=== PATIENT | female | born 1990 | race Caucasian/White ===

== ENCOUNTER 2019-03-07 06:00 | Inpatient (IN) | payer OTHER ==
[~2019-03-07] VITALS: Ht 154.9 cm; Wt 64.5 kg
[2019-03-07] MEDS ORDERED: OXYTOCIN 30U/ 0.9% NaCL 500ML 500 ML IV ONE (06:21)
[2019-03-07] MEDS ORDERED: LACTATED RINGERS 1,000 ML IV SCH ×3 (06:21→10:22)
[2019-03-07] MEDS ORDERED: OXYTOCIN 30U/ 0.9% NaCL 500ML 500 ML IV PRN (06:21)
[2019-03-07] MEDS ORDERED: ONDANSETRON 2MG/ML, 2ML IVPush PRN (06:30)
[2019-03-07] MEDS ORDERED: FENTANYL PF 100 MCG/2ML IVPush PRN (06:30)
[2019-03-07] MEDS ORDERED: TERBUTALINE 1 MG/ML, 1ML IVPush PRN (06:30)
[2019-03-07] MEDS ORDERED: TERBUTALINE 1 MG/ML, 1ML SQ PRN (06:30)
[2019-03-07] MEDS ORDERED: PLEASE ENTER ALLERGIES MC SCH (06:30)
[2019-03-07] MEDS ORDERED: FENTANYL PF 100 MCG/2ML IV PRN (06:30)
[2019-03-07 06:49] LABS: BASOPHILS # (AUTO) 0.03 x10^3/uL (0-0.1); BASOPHILS % (AUTO) 0 % (0-1); EOSINOPHILS # (AUTO) 0.08 x10^3/uL (0-0.4); EOSINOPHILS % (AUTO) 1 % (1-7); LYMPHOCYTES # (AUTO) 1.07 x10^3/uL (1-3.4); LYMPHOCYTES % (AUTO) 18 % (22-44); MD NO; MEAN CORPUSCULAR HEMOGLOBIN 31.7 pg (27.0-34.8); MEAN CORPUSCULAR HGB CONC 33.4 g/dL (32.4-35.8); MEAN CORPUSCULAR VOLUME 94.9 fL (80-100); MEAN PLATELET VOLUME 8.4 fL (7.4-10.4); MONOCYTES # (AUTO) 0.36 x10^3/uL (0.2-0.8); MONOCYTES % (AUTO) 6 % (2-9); NEUTROPHILS # (AUTO) 4.54 x10^3/uL (1.8-6.8); NEUTROPHILS % (AUTO) 75 % (42-75); PLATELET COUNT 198 x10^3/uL (130-400); RED BLOOD COUNT 3.54 x10^6/uL (3.82-5.3); RED CELL DISTRIBUTION WIDTH 14.1 % (9.6-15.2)
[2019-03-07] MEDS ORDERED: LIDOCAINE 1%, 20ML ONE (06:55)
[2019-03-07] MEDS ORDERED: NEWBORN KIT ONE (06:55)
[2019-03-07] MEDS ORDERED: MISOPROSTOL 200 MCG TABLET ONE (06:56)
[2019-03-07] MEDS ORDERED: OXYTOCIN 30U/ 0.9% NaCL 500ML 500 ML ONE (06:56)
[2019-03-07] MEDS ORDERED: FENTANYL/BUPIV./NS/PF 250 ML EPIDCONT SCH ×3 (08:35→10:22)
[2019-03-07] MEDS ORDERED: LACTATED RINGERS 1,000 ML IVBOLUS PRN ×3 (09:00→10:30)
[2019-03-07] MEDS ORDERED: FENTANYL PF 500 MCG, BUPIVACAINE/PF 0.5%, 30ML 62.5 ML in SODIUM CHLORIDE 0.9% 177.5 ML EPIDCONT SCH (09:00)
[2019-03-07] MEDS ORDERED: NALOXONE 0.4 MG/ML, 1ML IVPush PRN ×2 (10:00→10:30)
[2019-03-07] MEDS ORDERED: EPHEDRINE 50 MG/ML, 1ML IVPush PRN ×2 (10:00→10:30)
[2019-03-07] MEDS ORDERED: OXYTOCIN 30U/ 0.9% NaCL 500ML 500 ML IV SCH (12:15)
[2019-03-07] MEDS ORDERED: ACETAMINOPHEN 325 MG TABLET PO PRN (12:30)
[2019-03-07] MEDS ORDERED: MISOPROSTOL 200 MCG TABLET PR PRN (12:30)
[2019-03-07] MEDS ORDERED: OXYcodone IR 5MG TABLET PO PRN (12:30)
[2019-03-07] MEDS ORDERED: SIMETHICONE 80 MG CHEW TAB PO PRN (12:30)
[2019-03-07] MEDS ORDERED: DOCUSATE 100 MG CAPSULE PO PRN (12:30)
[2019-03-07] MEDS ORDERED: OXYcodone/APAP 5/325MG TABLET PO PRN (12:30)
[2019-03-07] MEDS ORDERED: IBUPROFEN 600 MG TABLET ONE (12:40)
[2019-03-07] MEDS: IBUPROFEN 600 MG TABLET PO PRN ×2 (12:41→12:45)
[2019-03-07 15:32] VITALS: BP 92/56
[2019-03-07 20:00] VITALS: BP 102/65
[2019-03-07 21:16] LABS: BASOPHILS # (AUTO) 0.02 x10^3/uL (0-0.1); BASOPHILS % (AUTO) 0 % (0-1); EOSINOPHILS # (AUTO) 0.12 x10^3/uL (0-0.4); EOSINOPHILS % (AUTO) 1 % (1-7); LYMPHOCYTES % (AUTO) 12 % (22-44); MD NO; MEAN CORPUSCULAR HGB CONC 33.6 g/dL (32.4-35.8); MEAN CORPUSCULAR VOLUME 95.3 fL (80-100); MEAN PLATELET VOLUME 8.7 fL (7.4-10.4); MONOCYTES # (AUTO) 0.51 x10^3/uL (0.2-0.8); MONOCYTES % (AUTO) 6 % (2-9); NEUTROPHILS # (AUTO) 7.55 x10^3/uL (1.8-6.8); NEUTROPHILS % (AUTO) 81 % (42-75); PLATELET COUNT 185 x10^3/uL (130-400); RED CELL DISTRIBUTION WIDTH 13.9 % (9.6-15.2)
[2019-03-07 23:33] VITALS: BP 103/63
[2019-03-08] MEDS: IBUPROFEN 600 MG TABLET PO PRN (02:01)
[2019-03-08 04:19] VITALS: BP 97/61
[2019-03-08 07:30] VITALS: BP 98/59
[2019-03-08] MEDS ORDERED: PRENATAL VIT/IRON/FA 1 EACH TABLET PO SCH (09:00)
[2019-03-08] MEDS ORDERED: IBUP-1222 PO (09:21)
== END 2019-03-08 14:14 | disposition home or self-care (01) | DRG 807 ==
LOC: LDIP 06:00 → UNDOADMIN 06:00 → 2NW 06:00
PROVIDERS: ADMIT Obstetrics & Gynecology; ATTEND Obstetrics & Gynecology
PROC: 10E0XZZ Delivery of Products of Conception, External Approach (ICD-10-PCS; principal; 2019-03-07)
PROC: 3E0R3BZ Introduction of Anesthetic Agent into Spinal Canal, Percutaneous Approach (ICD-10-PCS; 2019-03-07)
PROC: 00HU33Z Insertion of Infusion Device into Spinal Canal, Percutaneous Approach (ICD-10-PCS; 2019-03-07)
DX: O69.81X0 Labor and delivery complicated by cord around neck, without compression, not applicable or unspecified (principal); Z37.0 Single live birth; Z3A.39 39 weeks gestation of pregnancy
CPT/HCPCS: J3490; S0020; 82962; 85025; 86850; 86900; G0378; J3010; J2590; J7050; J7120